=== PATIENT | female | born 1980 | race Caucasian/White ===

== ENCOUNTER 2016-11-14 14:27 | Outpatient (CLI) | payer OTHER ==
[~2016-11-14] VITALS: Ht 170.2 cm; Wt 141.8 kg
[~2016-11-14 14:27] MED LIST: ALBU8.5H3 PO; IPRA12.93 IH
[2016-11-14 15:21] VITALS: Ht 170.2 cm; Wt 141.8 kg
[2016-11-14 15:26] VITALS: BP 135/60; PULSE 90; RESP 18
[2016-11-14 16:01] LABS: ADD SCAN DIFF NO
[2016-11-14 16:08] LABS: BASOPHILS % 0.1 % (0.0-2.0); EOSINOPHILS # 0.2 10^3/ul (0.0-0.5); EOSINOPHILS % 2.6 % (0.0-7.0); HEMATOCRIT 32.1 % (37.0-47.0); HEMOGLOBIN 10.3 g/dl (12.0-16.0); LYMPHOCYTES # 1.6 10^3/ul (0.8-2.9); MEAN CORPUSCULAR HEMOGLOBIN 31.3 pg (29.0-33.0); MEAN CORPUSCULAR HGB CONC 32.1 g/dl (32.0-37.0); MEAN CORPUSCULAR VOLUME 97.6 fl (82.0-101.0); MEAN PLATELET VOLUME 9.2 fl (7.4-10.4); MONOCYTE # 0.6 10^3/ul (0.3-0.9); MONOCYTES % 7.1 % (0.0-11.0); NEUTROPHIL # 6.1 10^3/ul (1.6-7.5); NEUTROPHILS % 71.3 % (39.0-77.0); PLATELET COUNT 290 10^3/UL (140-415); RED BLOOD COUNT 3.29 10^6/ul (4.20-5.40); RED CELL DISTRIBUTION WIDTH 15.2 % (11.5-14.5); WHITE BLOOD COUNT 8.6 10^3/ul (4.8-10.8)
[2016-11-14 16:13] LABS: ADD UMIC NO; URINE BILIRUBIN (Dip) NEGATIVE (NEGATIVE); URINE BLOOD (Dip) NEGATIVE (NEGATIVE); URINE COLOR LT. YELLOW (YELLOW); URINE GLUCOSE (Dip) NEGATIVE (NEGATIVE); URINE KETONES (Dip) NEGATIVE (NEGATIVE); URINE LEUKOCYTE ESTERASE (Dip) NEGATIVE (NEGATIVE); URINE NITRITE (Dip) NEGATIVE (NEGATIVE); URINE TOTAL PROTEIN (Dip) NEGATIVE (NEGATIVE); URINE UROBILINOGEN (Dip) 0.2 E.U./dL (0.1-1.0)
[2016-11-14 16:25] LABS: ALBUMIN 3.1 g/dl (3.3-4.9); INR 0.97; POTASSIUM 3.8 mmol/L (3.5-5.1); PROTIME 12.9 Sec (12.2-14.2)
[2016-11-14 16:26] LABS: PARTIAL THROMBOPLASTIN TIME 27.1 Sec (25.0-35.0)
[2016-11-14 16:27] LABS: BILIRUBIN,INDIRECT 0.3 mg/dl (0-1.1); BILIRUBIN,TOTAL 0.3 mg/dl (0.2-1.3); CREATININE 0.69 mg/dl (0.44-1.00)
[2016-11-14 16:28] LABS: ALBUMIN/GLOBULIN RATIO 0.93; CALCIUM 8.8 mg/dl (8.4-10.2); TOTAL PROTEIN 6.4 g/dl (6.1-8.1); URIC ACID 3.7 mg/dl (3.1-7.9)
[2016-11-14] MEDS ORDERED: BETAMET NA PHOS/AC(6 MG/ML) 5ML INJ IM ONE (16:30)
[2016-11-14] MEDS ORDERED: TERBUTALINE 1 MG/ML INJ SC ONE (16:30)
--- NOTE | 2016-11-14 16:33 | RADRPT ---
PROCEDURE: OB ultrasound for biophysical profile CLINICAL INDICATION: Hypertension. Biophysical profile. . TECHNIQUE: Multiple sonographic images of the pelvis were obtained. Transabdominal view of the gr avid uterus are available for review. The images were reviewed on a PACS workstation. COMPARISON: None FINDINGS: breathing movement = 2/2 tone = 2/2 motion = 2/2 SHIRLEY = 2/2 Single intrauterine gestation is identified in cephalic position. heart rate is 136 bpm. Plac enta is anterior without evidence for abruption or previa. SHIRLEY measures 15.6 cm, within normal limi ts. IMPRESSION: 1. Single live intrauterine gestation. 2. Biophysical profile = 8/8. 3. SHIRLEY = 15.6 cm. RPTAT: PP .Shiv Roberto MD, Date Time Electronically viewed and signed by .Shiv Roberto MD, on 11/14/2016 16:33 .R/
--- NOTE | 2016-11-14 16:58 | HP ---
Date/Time of Note Date/Time of Note DATE: 11/14/16 TIME: 16:56 OB - History Hx of Present Free Text/Dictation OB Triage Pt is a 35yo morbidly obese at 34+2 presenting from clinic for r/o PreE. BPs today 140/61 and 147/71. Pt reports normal FM, denies LOF, VB, UCs, [place], visual changes or RUQ pain. PROCEDURE: OB ultrasound for biophysical profile CLINICAL INDICATION: Hypertension. Biophysical profile. . TECHNIQUE: Multiple sonographic images of the pelvis were obtained. Transabdominal view of the gravid uterus are available for review. The images were reviewed on a PACS workstation. COMPARISON: None FINDINGS: breathing movement = 2/2 tone = 2/2 motion = 2/2 SHIRLEY = 2/2 Single intrauterine gestation is identified in cephalic position. heart rate is 136 bpm. Placenta is anterior without evidence for abruption or previa. SHIRLEY measures 15.6 cm, within normal limits. IMPRESSION: 1. Single live intrauterine gestation. 2. Biophysical profile = 02/12. 3. SHIRLEY = 15.6 cm. Estimated Due Date: Dec 24, 2016 : 5 Para: 4 Care: Good Care Obstetrical Complications: Other (morbid obesity) Medical Complications: Respiratory (Asthma) OB Admission Exam Vital Signs Vital Signs Vital Signs Date Time Temp Pulse Resp B/P Pulse Ox O2 Delivery O2 Flow Rate FiO2 11/14/16 15:26 97.8 90 18 135/60 Room Air 136/63 137/66 131/64 134/63 125/59 Physical Exam Heart Rate: 130's Accelerations: Accelerations Present Decelerations: No Decelerations Varibility: Moderate Contractions on Admission: None Last 72 hours Lab Results CBC & BMP 11/14/16 15:50 Liver Function Test 11/14/16 15:50 Alanine Aminotransferase (ALT/SGPT) 32 Albumin 3.1 L Alkaline Phosphatase 100 Aspartate Amino Transf (AST/SGOT) 16 Direct Bilirubin 0.00 Total Protein 6.4 OB Assessment/Plan Other Assessment: Normal BPs w/o evidence of PreE Reassuring FWB Other plan: Pt w/normal BPs in triage and neg PreE labs. Reactive NST, 02/12 BPP. Appropriate for d/c home. Given mild-range BPs in clinic, pt instructed to start collection of 24hr urine - pt received supplies in the clinic. Pt to f/up as scheduled with Dr. Villarreal as an outpatient on 11/20. PreE, PPROM, PTL and FKC precautions reviewed. Pt verbalized understanding of teaching. FLAVIA GALLAGHER MD November 14, 2016 16:58
--- NOTE | 2016-11-14 17:29 | TRIAGE ---
OB Triage Datetime Report Generated by CPN: 11/14/2016 17:29 Datetime: 11/14/2016 17:10 Stage of : OB Triage Time of Arrival: 11/14/2016 14:24 Arrived By: Ambulatory Arrived From: [facility] Chief Complaint: ELEV BP Movement: Present Contractions: Denies/Absent Rupture of Membranes: Denies Vaginal Bleeding: None Vaginal Discharge: Denies Abdominal Trauma: Fall Patient Complaints: None Time Provider Notified: 11/14/2016 17:10 Provider Notified: TOI Datetime: 11/14/2016 15:30 Maternal Assessment Level of Consciousness: Fully Conscious DTR's/Clonus: DTRs 2+ Headache: Denies Blurred Vision: No Nausea/Vomiting: Denies RUQ Epigastric Pain: Denies Facial Edema: None Labor Evaluation Frequency: 0 Resting Tone [place]: Relaxed Heart Rate FHR Baseline Rate: 135 Monitor Mode: External US FHR Baseline Changes: No Baseline Change Variability: Moderate 6-25 bpm Accelerations: 15X15 Decelerations: None Category: Category I Vaginal Exam Membrane Status: Intact Datetime: 11/14/2016 14:51 Comments: EFM ON
[2016-11-14 17:32] LABS: FIBRIN SPLIT PRODUCT <10 ug/ml (<10)
== END 2016-11-14 17:15 | disposition home or self-care (01) ==
LOC: OBT 14:27 → L-D 14:28 → OBT 17:15
PROVIDERS: ATTEND Obstetrics & Gynecology
DX: O26.893 Other specified pregnancy related conditions, third trimester (principal); R03.0 Elevated blood-pressure reading, without diagnosis of hypertension; O99.213 Obesity complicating pregnancy, third trimester; E66.01 Morbid (severe) obesity due to excess calories; O09.523 Supervision of elderly multigravida, third trimester; Z3A.34 34 weeks gestation of pregnancy
CPT/HCPCS: 76818; 80053; 81003; 84560; 85025; 85362; 85384; 85610; 85730

== ENCOUNTER 2016-12-24 14:44 | Inpatient (IN) | payer OTHER ==
[~2016-12-24] VITALS: Ht 170.2 cm; Wt 144.6 kg
[2016-12-26] MEDS ORDERED: PRENAT PO (15:52)
[2016-12-26] MEDS ORDERED: SYMB80120 INHALATION (15:54)
[2016-12-26 15:55] VITALS: Ht 170.2 cm; Wt 144.6 kg
[2016-12-26] MEDS ORDERED: MISOPROSTOL 200 MCG TAB PR PRN (16:00)
[2016-12-26] MEDS ORDERED: OXYTOCIN 30 UNITS/LR 500 ML IV SCH (16:00)
[2016-12-26] MEDS ORDERED: CARBOPROST 250 MCG INJ IM PRN (16:00)
[2016-12-26] MEDS ORDERED: METHYLERGONOVINE 0.2 MG INJ IM PRN (16:00)
[2016-12-26] MEDS ORDERED: CEFAZOLIN 2 GM/50 ML (PMX) 50 ML IVPB SCH (16:00)
[2016-12-26] MEDS ORDERED: OXYTOCIN 30 UNITS/LR 500 ML IV PRN (16:00)
[2016-12-26 16:38] LABS: ADD SCAN DIFF NO
[2016-12-26 16:41] LABS: BASOPHILS % 0.1 % (0.0-2.0); EOSINOPHILS # 0.1 10^3/ul (0.0-0.5); EOSINOPHILS % 1.4 % (0.0-7.0); HEMATOCRIT 32.9 % (37.0-47.0); HEMOGLOBIN 10.8 g/dl (12.0-16.0); LYMPHOCYTES # 1.7 10^3/ul (0.8-2.9); LYMPHOCYTES % 21.6 % (15.0-51.0); MEAN CORPUSCULAR HEMOGLOBIN 31.3 pg (29.0-33.0); MEAN CORPUSCULAR HGB CONC 32.8 g/dl (32.0-37.0); MEAN CORPUSCULAR VOLUME 95.4 fl (82.0-101.0); MEAN PLATELET VOLUME 9.6 fl (7.4-10.4); MONOCYTE # 0.6 10^3/ul (0.3-0.9); MONOCYTES % 7.8 % (0.0-11.0); NEUTROPHIL # 5.4 10^3/ul (1.6-7.5); NEUTROPHILS % 68.7 % (39.0-77.0); PLATELET COUNT 273 10^3/UL (140-415); RED BLOOD COUNT 3.45 10^6/ul (4.20-5.40); RED CELL DISTRIBUTION WIDTH 15.9 % (11.5-14.5); WHITE BLOOD COUNT 7.9 10^3/ul (4.8-10.8)
[2016-12-26 16:59] LABS: INR 0.89; PT RATIO 0.9
[2016-12-26 17:00] LABS: PARTIAL THROMBOPLASTIN TIME 25.8 Sec (25.0-35.0)
[2016-12-26 17:03] LABS: ALBUMIN/GLOBULIN RATIO 1.42; BILIRUBIN,INDIRECT 0.2 mg/dl (0-1.1); BILIRUBIN,TOTAL 0.2 mg/dl (0.2-1.3); CREATININE 0.81 mg/dl (0.44-1.00); POTASSIUM 4.4 mmol/L (3.5-5.1); TOTAL PROTEIN 6.8 g/dl (6.1-8.1)
[2016-12-26 17:28] LABS: ADD UMIC NO; UR ASCORBIC ACID NEGATIVE (NEGATIVE); UR BACTERIA FEW /HPF (NONE SEEN); UR BILIRUBIN (Dip) NEGATIVE (NEGATIVE); UR BLOOD (Dip) NEGATIVE (NEGATIVE); UR CLARITY SLIGHTLY CLOUDY (CLEAR); UR COLOR YELLOW (YELLOW); UR GLUCOSE (Dip) NEGATIVE (NEGATIVE); UR KETONES (Dip) NEGATIVE (NEGATIVE); UR LEUKOCYTE ESTERASE (Dip) NEGATIVE Leu/ul (NEGATIVE); UR MUCUS FEW /HPF (NONE SEEN); UR NITRITE (Dip) NEGATIVE (NEGATIVE); UR RBC 0 /HPF (0-5); UR SPECIFIC GRAVITY (Dip) 1.021 (1.003-1.030); UR TOTAL PROTEIN (Dip) NEGATIVE (NEGATIVE); UR UROBILINOGEN (Dip) NEGATIVE (NEGATIVE)
[2016-12-26 18:47] LABS: FIBRIN SPLIT PRODUCT <10 ug/ml (<10)
[2016-12-26] MEDS: LACTATED RINGER'S 1,000 ML IV SCH ×2 (19:14→19:15)
[2016-12-26] MEDS ORDERED: ONDANSETRON 4 MG INJ ONE (20:50)
[2016-12-26] MEDS ORDERED: OXYTOCIN 10 UNIT INJ ONE ×2 (20:50→21:36)
[2016-12-26] MEDS ORDERED: morphine SULFATE/PF (10 MG/10 ML) INJ ONE (20:50)
[2016-12-26] MEDS ORDERED: METOCLOPRAMIDE 10 MG INJ ONE (20:50)
[2016-12-26] MEDS ORDERED: OXYTOCIN 30 UNITS/LR 500 ML IV ONE (20:50)
[2016-12-26] MEDS ORDERED: EPHEDrine SULFATE 50 MG/5 ML SYG ONE (20:50)
--- NOTE | 2016-12-26 22:01 | HP ---
Date/Time of Note Date/Time of Note DATE: 12/26/16 TIME: 21:56 OB - History Hx of Present Free Text/Dictation admitted for repeat C/S and BTL at term Last Menstrual Period: Mar 26, 2016 Estimated Due Date: Dec 30, 2016 : 5 Para: 3 Therapeutic : 1 Care: Good Care Ultrasounds: Normal mid trimester US Obstetrical Complications: Gestational Hypertension Past Family/Social History * Past Medical, Surgical, Family and Obstetric Histories reviewed from chart. Blood Type: O+ Rubella: immune RPR/VDRL: Negative GBS Status: Unknown HBsAG: Negative OB Admission Exam Physical Exam HEENT: WNL Heart: Rhythm Normal Lungs: Clear, Equal Abdomen: WNL Extremities: Normal Reflexes: Normal Cervical Dilatation: None Effacement: 0% Station: -3 Heart Rate: 140's Accelerations: Accelerations Present Decelerations: No Decelerations Varibility: Marked Contractions on Admission: None Last 72 hours Lab Results CBC & BMP 12/26/16 15:55 Liver Function Test 12/26/16 15:55 Alanine Aminotransferase (ALT/SGPT) 26 Albumin 4.0 Alkaline Phosphatase 147 H Aspartate Amino Transf (AST/SGOT) 20 Direct Bilirubin 0.00 Total Protein 6.8 OB Assessment/Plan Reason for admission: section Other Assessment: term gestation previous C/S X 1 desires sterilization Other plan: repeat C/S + BTL Patient had good awareness of nature and complications of C/S procedure including but but limited to infection and hemorrhage. Permanency and failure of tubal ligation procedure asa well as its future complications including but not limited to pelvic pain or ectopic were also clear to the patient and agreed to undergo C/S + BTL JUDY FREED MD Dec 26, 2016 22:01
--- NOTE | 2016-12-26 22:03 | OPR ---
Operative Report Planned Procedure Procedure date Dec 26, 2016 Procedure(s) repeat C/S + BTL Performed by: JUDY FREED MD Assisting provider: MARTA TALBERT Anesthesiologist: OUMAR LYONS MD Pre-procedure diagnosis term gestation previous C/S X 1 desires sterilization Anesthesia Type: spinal Procedure Description Under satisfactory anaesthesia a Pfannenstiel incision was made two fingerbreadth above and parallel to the symphysis of pubis around the previous scar and previous scar was removed Incision was extended laterally to the border of the Recti muscles on either sides. Incision was carried down with sharp and blunt dissection until fascia was reached. Anterior Recti muscle fascia was incised in mid portion and incision extended laterally to the border of skin incision. Fascia was mobilized from muscle superiorly and Recti muscles were from midline using sharp and blunt dissection. Peritoneum was visualized; Avoiding bowel and bladder it was incised . Incision was extended superiorly and inferiorly. Bladder blade was placed. Posterior peritoneum covering the lower segment of the uterus and lower segment of the uterus were incised.Low transverse uterine incision was made on lower segment of the uterus. Incision extended laterally to the border of Round Lig. on either sides and baby was delivered from OT. position . Amniotic fluid appeared clear. Cord blood was obtained and cord had 3 vessels . Placenta was delivered spontaneously and appeared intact and complete. Intrauterine cavity was rubbed with a laparotomy sponge. Uterine incision was closed in 2 layers using running stitches of No1 Monocryl. Hemostasis appeared secure. Ovaries and Fallopian tubes were within normal limits. Bilateral Tubal Ligation was performed by following procedure: R fallopian tube was raised in mid portion; a Amelie clamp was placed below the fimbriae extending to proximal portion of the fallopian tube. Another clamp was placed parallel to the first and after incising the fallopian tube the stump was sutured using 0 Vicryl stitch. Hemostasis was secure . Same procedure was done on fallopian tube on the opposite side. Hemostasis appeared to be secure on ligated sites of either fallopian tubes. Announcing needle, lap sponge and instrument count to be correct abdomen was closed in layers as follows: Peritoneum and Recti muscles with running stitches of 20 Vicryl. Fascia with running stitch of No 1 PDS. Subcutaneous tissue with running stitches of 20 Chromic and skin was closed using yung. Patient tolerated the procedure well and was transferred to [facility] in good condition. Post-Procedure Post-procedure diagnosis S/P C/S + BTL Findings: Live Baby Specimen removed: Yes Specimen description segments of R and L fallopian tubes Complications: None Pt Condition post procedure: stable Disposition: PACU Physician Certification I, the undersigned physician, hereby certify that I have discussed the procedure described in this consent form with this patient (or the patient's legal outside sales representative), including: * The risk and benefits of the procedure; * Any adverse reactions that may reasonably be expected to occur; * Any alternative efficacious methods of treatment which may be medically viable ; * The potential problems that may occur during recuperation; * Potential for blood transfusion and associated risks/benefits; and * Any research or economic interest I may have regarding this treatment. I further certify that the patient/legally responsible person was encouraged to ask question and that all questions were answered. JUDY FREED MD Dec 26, 2016 22:03
[2016-12-26] MEDS ORDERED: morphine 2 MG INJ IV PRN ×2 (22:30)
[2016-12-26] MEDS ORDERED: morphine SULFATE/PF (10 MG/10 ML) INJ SPINAL ONE (22:30)
[2016-12-26] MEDS ORDERED: EPHEDrine SULFATE 50 MG/5 ML SYG IV PRN (22:30)
[2016-12-26] MEDS ORDERED: DIPHENHYDRAMINE 50 MG INJ IV PRN (22:30)
[2016-12-26] MEDS ORDERED: MEPERIDINE 25 MG INJ IV ONE (22:30)
[2016-12-26] MEDS ORDERED: ONDANSETRON 4 MG INJ IV PRN (22:30)
[2016-12-26] MEDS ORDERED: HYDROmorphONE 1 MG/ML SYG IV PRN ×2 (22:30)
[2016-12-26] MEDS ORDERED: NALOXONE (0.4 MG/ML) INJ IV PRN (22:30)
[2016-12-27] MEDS: KETOROLAC 30 MG INJ IV PRN ×2 (01:11→20:07)
[2016-12-27 01:30] VITALS: BP 116/55; PULSE 88; RESP 18
[2016-12-27] MEDS ORDERED: LANOLIN 7 GM TUBE TOP PRN (01:30)
[2016-12-27] MEDS ORDERED: OXYTOCIN 30 UNITS/LR 500 ML IV PRN (01:30)
[2016-12-27] MEDS ORDERED: MISOPROSTOL 200 MCG TAB PR PRN (01:30)
[2016-12-27] MEDS ORDERED: CARBOPROST 250 MCG INJ IM PRN (01:30)
[2016-12-27] MEDS ORDERED: NA PHOSPHATE/BIPHOS 133 ML ENEMA PR PRN (01:30)
[2016-12-27] MEDS ORDERED: METHYLERGONOVINE 0.2 MG INJ IM PRN (01:30)
[2016-12-27] MEDS: CEFAZOLIN 2 GM/50 ML (PMX) 50 ML IV SCH ×3 (02:10→18:04)
[2016-12-27] MEDS: LACTATED RINGER'S 1,000 ML IV SCH ×4 (02:11→20:07)
[2016-12-27 02:59] LABS: BARBITURATES Negative (NEGATIVE); BENZODIAZEPINES Negative (NEGATIVE); CANNABINOIDS Negative (NEGATIVE); COCAINE Negative (NEGATIVE); OPIATES Negative (NEGATIVE)
[2016-12-27 04:00] VITALS: BP 98/53; RESP 20
[2016-12-27] MEDS: CLINDAMYCIN 300 MG CAP PO SCH ×4 (05:39→23:45)
[2016-12-27] MEDS ORDERED: SALMETEROL/FLUTICASONE 100/50 INHA INH ONE (07:00)
[2016-12-27] MEDS ORDERED: ALBUTEROL 18 GM INHALER INH PRN (07:00)
[2016-12-27 07:30] VITALS: BP 125/58; PULSE 78; RESP 20
[2016-12-27 07:54] LABS: ADD SCAN DIFF NO
[2016-12-27 08:13] LABS: BASOPHILS % 0.1 % (0.0-2.0); EOSINOPHILS # 0.1 10^3/ul (0.0-0.5); EOSINOPHILS % 0.5 % (0.0-7.0); HEMATOCRIT 30.5 % (37.0-47.0); HEMOGLOBIN 9.8 g/dl (12.0-16.0); LYMPHOCYTES # 1.8 10^3/ul (0.8-2.9); LYMPHOCYTES % 16.7 % (15.0-51.0); MEAN CORPUSCULAR HEMOGLOBIN 31.1 pg (29.0-33.0); MEAN CORPUSCULAR HGB CONC 32.1 g/dl (32.0-37.0); MEAN CORPUSCULAR VOLUME 96.8 fl (82.0-101.0); MEAN PLATELET VOLUME 9.8 fl (7.4-10.4); MONOCYTE # 0.8 10^3/ul (0.3-0.9); MONOCYTES % 7.1 % (0.0-11.0); NEUTROPHIL # 8.2 10^3/ul (1.6-7.5); NEUTROPHILS % 75.1 % (39.0-77.0); PLATELET COUNT 208 10^3/UL (140-415); RED BLOOD COUNT 3.15 10^6/ul (4.20-5.40); RED CELL DISTRIBUTION WIDTH 15.9 % (11.5-14.5)
--- NOTE | 2016-12-27 09:19 | PN ---
Date/Time of Note Date/Time of Note DATE: 12/27/16 TIME: : Assessment/Plan VTE Prophylaxis VTE Prophylaxis Intervention: ambulation Lines/Catheters IV Catheter Type (from Nrsg): Peripheral IV Assessment/Plan Assessment/Plan POD # 1 S/P C/S and BTL will advance diet and monitor VS Subjective 24 Hr Interval Summary No BM passing flatus Constitutional: BM, ambulates, flatus, improved, no complaints, urine output Pain Control: well controlled Exam/Review of Systems Vital Signs Vitals Vital Signs Date Time Temp Pulse Resp B/P Pulse Ox O2 Delivery O2 Flow Rate FiO2 12/27/16 07:30 98.0 78 20 125/58 Room Air 12/27/16 05:14 96 21 Intake and Output 12/26/16 12/26/16 12/27/16 15:00 23:00 07:00 Intake Total 1000 ml Output Total 480 ml Balance 1000 ml -480 ml Exam Free Text/Dictation abdomen: soft bs + incision: covered Constitutional: alert, oriented, well developed Psych: nl mood/affect, no complaints Head: atraumatic, normocephalic Eyes: EOMI, nl conjunctiva, nl lids, nl sclera ENMT: mucosa pink and moist, nl external ears & nose, nl lips & teeth, nl nasal mucosa & septum Neck: non-tender, supple Respiratory: clear to auscultation, normal air movement Cardiovascular: nl pulses, regular rate and rhythm Gastrointestinal: nl liver, spleen, non-tender, soft Drains none Musculoskeletal: nl extremities to inspection, nl gait and stance Extremities: normal pulses Neurological: [employer] INTEGRITY ANALYST II-XII intact, nl mental status, nl speech, nl strength Skin: nl turgor, rash or lesions Lymph: nl lymph nodes Results Result Diagram: 12/27/16 0730 12/26/16 1555 JUDY FREED MD Dec 27, 2016 09:19
[2016-12-27] MEDS: SENNA/DOCUSATE NA (8.6MG/50MG) TAB PO SCH ×2 (09:43→21:01)
[2016-12-27] MEDS ORDERED: BISACODYL 10 MG SUPP PR ONE (10:30)
[2016-12-27] MEDS: ENOXAPARIN 40 MG/0.4 ML SYG SC SCH (11:00)
[2016-12-27 12:00] VITALS: BP 114/58; PULSE 80; RESP 20
[2016-12-27 16:00] VITALS: BP 112/55; PULSE 78; RESP 18
[2016-12-27 20:00] VITALS: BP 124/53; PULSE 83; RESP 18
[2016-12-27] MEDS: IBUPROFEN 800 MG TAB PO SCH (21:48)
[2016-12-27] MEDS ORDERED: ACETAMINOPHEN/CODEINE #3 TAB PO PRN (22:30)
[2016-12-28 04:00] VITALS: BP 139/87; PULSE 87; RESP 20
[2016-12-28] MEDS: CLINDAMYCIN 300 MG CAP PO SCH ×4 (05:32→23:33)
[2016-12-28] MEDS: IBUPROFEN 800 MG TAB PO SCH ×3 (05:32→21:32)
[2016-12-28 06:58] LABS: ADD SCAN DIFF NO
[2016-12-28 07:03] LABS: BASOPHILS % 0.1 % (0.0-2.0); EOSINOPHILS # 0.1 10^3/ul (0.0-0.5); EOSINOPHILS % 1.4 % (0.0-7.0); HEMOGLOBIN 10.2 g/dl (12.0-16.0); LYMPHOCYTES # 1.4 10^3/ul (0.8-2.9); LYMPHOCYTES % 13.6 % (15.0-51.0); MEAN CORPUSCULAR HEMOGLOBIN 31.1 pg (29.0-33.0); MEAN CORPUSCULAR HGB CONC 31.9 g/dl (32.0-37.0); MEAN CORPUSCULAR VOLUME 97.6 fl (82.0-101.0); MEAN PLATELET VOLUME 9.6 fl (7.4-10.4); MONOCYTE # 0.8 10^3/ul (0.3-0.9); MONOCYTES % 7.9 % (0.0-11.0); NEUTROPHIL # 7.8 10^3/ul (1.6-7.5); NEUTROPHILS % 76.5 % (39.0-77.0); PLATELET COUNT 227 10^3/UL (140-415); RED BLOOD COUNT 3.28 10^6/ul (4.20-5.40); RED CELL DISTRIBUTION WIDTH 16.1 % (11.5-14.5); WHITE BLOOD COUNT 10.2 10^3/ul (4.8-10.8)
[2016-12-28] MEDS: LACTATED RINGER'S 1,000 ML IV SCH (09:06)
[2016-12-28] MEDS: ENOXAPARIN 40 MG/0.4 ML SYG SC SCH (09:12)
[2016-12-28] MEDS: SENNA/DOCUSATE NA (8.6MG/50MG) TAB PO SCH ×2 (09:13→21:32)
[2016-12-28 10:42] VITALS: BP 116/69; RESP 18
[2016-12-28] MEDS: OXYCODONE/ACETAMINOPHEN (5/325) TAB PO PRN ×2 (11:44→16:52)
[2016-12-28 16:25] VITALS: BP 130/82; PULSE 86; RESP 16
--- NOTE | 2016-12-28 16:30 | DS ---
Date/Time of Note Date/Time of Note home next day DATE: 12/28/16 TIME: 16:28 Obstetrical Discharge Record Final Diagnosis Final Diagnosis: Term delivered Other Final Diagnosis S/P C/S + BTL Vaginal Delivery Obstetrical Delivery: Bilateral Tubal Ligation Section Section: Repeat Complications Other (chronic HTN ) Condition on Discharge Physical Assessment Last Vitals: see nurses notes Voiding: Yes Bowel Movement: Yes Breast: Soft, non-tender, Filling Fundus: Firm Abdomen and Incision: soft bs + incision: healing well Episiotomy: NA Calf Tenderness: No Patient Condition: Good JUDY FREED MD Dec 28, 2016 16:30
--- NOTE | 2016-12-28 16:31 | DS ---
Date/Time of Note Date/Time of Note DATE: 12/28/16 TIME: 16:30 Discharge Summary Admission/Discharge Info Admit Date/Time Dec 26, 2016 at 14:54 Discharge Date/Time 12/29/2016 Discharge Diagnosis S/P C/S + BTL Procedures repeat C/S + BTL Hx of Present Illness 36 y/o female had repeat C/S + BTL Hospital Course uncomplicated Home Meds Reported Medications Budesonide-Formoterol Fumarate* (Symbicort*) 80-4.5 Inha, 2 PUFFS INHALATION BID , #1 EACH 12/26/16 Multivit/Min/Fol Ac/Iron/Pren* ( S*) 1 Tab Tab, 1 TAB PO DAILY, TAB 12/26/16 Ipratropium [place]* (Atrovent HFA*) 12.9 Gm Aer.w.adap, 2 PUFF IH DAILY Y for SHORTNESS OF BREATH, EA 07/12/14 Albuterol Sulfate* (Proair HFA*) 8.5 Gm Hfa.aer.ad, 2 PUFFS PO DAILY Y for WHEEZING AND SOB 07/12/14 Follow-up Plan 2-3 days in clinic for staple removal Primary Care Provider Sanjay Ordoñez MD Pending Labs Laboratory Tests Test 12/28/16 06:20 White Blood Count 10.210^3/ul (4.8-10.8) Red Blood Count 3.2810^6/ul (4.20-5.40) Hemoglobin 10.2g/dl (12.0-16.0) Hematocrit 32.0% (37.0-47.0) Mean Corpuscular Volume 97.6fl (82.0-101.0) Mean Corpuscular Hemoglobin 31.1pg (29.0-33.0) Mean Corpuscular Hemoglobin Concent 31.9g/dl (32.0-37.0) Red Cell Distribution Width 16.1% (11.5-14.5) Platelet Count 01607^3/UL (140-415) Mean Platelet Volume 9.6fl (7.4-10.4) Neutrophils % 76.5% (39.0-77.0) Lymphocytes % 13.6% (15.0-51.0) Monocytes % 7.9% (0.0-11.0) Eosinophils % 1.4% (0.0-7.0) Basophils % 0.1% (0.0-2.0) Nucleated Red Blood Cells % 0.0/100WBC (0.0-0.0) Neutrophils # 7.810^3/ul (1.6-7.5) Lymphocytes # 1.410^3/ul (0.8-2.9) Monocytes # 0.810^3/ul (0.3-0.9) Eosinophils # 0.110^3/ul (0.0-0.5) Basophils # 0.010^3/ul (0.0-0.1) Nucleated Red Blood Cells # 0.010^3/ul (0.0-0.0) UJDY FREED MD Dec 28, 2016 16:31
--- NOTE | 2016-12-28 16:33 | PD.PPDC ---
LOG SORTER Discharge Instruction Provider Information Physician Information 36 y/o female had repeat C/S + BTL Diagnosis Final Diagnosis: S/P C?S+ BTL Condition Patient Condition: Good Diet Diet: Resume Regular Diet Activity/Restrictions Restrictions: No Exercising No Lifting Nothing in the Vagina Return to Work or School: Mar 04, 2017 Follow-up Follow-up with Physician: 2, 3, Day/Days (in clinic for staple removal ) Return to clinic for INSTRUCTIONAL CONSULTANT Instructions: Fever greater than 101 Chills OB Instructions: Breast Tenderness Depression Blurried Vision Headache Surgical Instructions: Incisional Drainage Incisional Redness JUDY FREED MD Dec 28, 2016 16:33
[2016-12-28] MEDS ORDERED: IBUP800T25 PO (16:34)
[2016-12-28] MEDS ORDERED: Oxycodone/Acetamin (5/325) PO (16:34)
[2016-12-28 20:15] VITALS: BP 110/78; PULSE 87; RESP 18
[2016-12-29] MEDS: OXYCODONE/ACETAMINOPHEN (5/325) TAB PO PRN ×2 (03:03→09:47)
[2016-12-29 03:50] VITALS: BP 117/67; PULSE 78; RESP 18
[2016-12-29] MEDS: CLINDAMYCIN 300 MG CAP PO SCH ×2 (05:49→13:36)
[2016-12-29] MEDS: IBUPROFEN 800 MG TAB PO SCH ×2 (05:49→13:35)
[2016-12-29] MEDS ORDERED: DIPHTH/TET/ACEL PERTUSS (ADULT) 0.5 ML VIAL IM* ONE (09:00)
[2016-12-29] MEDS ORDERED: MEASLES,MUMPS,RUBELLA VACCINE INJ SC* ONE (09:00)
[2016-12-29 09:30] VITALS: BP 118/73; PULSE 89; RESP 16
[2016-12-29] MEDS: ENOXAPARIN 40 MG/0.4 ML SYG SC SCH (09:41)
[2016-12-29] MEDS: SENNA/DOCUSATE NA (8.6MG/50MG) TAB PO SCH (09:43)
== END 2016-12-29 19:00 | disposition home or self-care (01) | DRG 766 ==
LOC: EDSTATUS 14:44 → L-D 12-26 14:54 → PP1 12-27 01:26
PROVIDERS: ADMIT Obstetrics & Gynecology; ATTEND Obstetrics & Gynecology
PROC: 0UB70ZZ Excision of Bilateral Fallopian Tubes, Open Approach (ICD-10-PCS; 2016-12-26)
PROC: 10D00Z1 Extraction of Products of Conception, Low, Open Approach (ICD-10-PCS; principal; 2016-12-26 17:00)
DX: O13.3 Gestational [pregnancy-induced] hypertension without significant proteinuria, third trimester (principal); O34.211 Maternal care for low transverse scar from previous cesarean delivery; Z3A.00 Weeks of gestation of pregnancy not specified; Z37.0 Single live birth; Z30.2 Encounter for sterilization
CPT/HCPCS: 80053; 80307; 81001; 81003; 84560; 85025; 85362; 85384; 85610; 85730; 86592; 86850; 86900; 86901; 87340; 88302; 90715; 94760; 99464; J0690; J1650; J1885; J2175; J2210; J2274; J2405; J2590; J2765; J7120